=== PATIENT | male | born 1940 | race Hispanic/Latino ===

== ENCOUNTER 2017-08-25 23:34 | Emergency (ER) | payer MEDICARE, MEDICAID ==
--- NOTE | 2017-08-26 00:01 | RAD ---
CHEST ONE VIEW 08/25/17 HISTORY: Chest pain. COMPARISON: Chest one view from 2014. FINDINGS: There is a right infrahilar opacity. Mild blunting of the left lateral costophrenic sulcus. No pneumo thorax. IMPRESSION: Right infrahilar opacity versus mass. Clinical correlation advised. Close followup imaging is recomme ndeberyl. POS: STEPHIE
[2017-08-26 00:03] LABS: #Basophils 0.1 thou/uL (0.0-0.2); #Lymphocytes 1.8 thou/uL (1.20-3.40); #Monocytes 0.5 thou/uL (0.11-0.59); #Neutrophils 5.6 thou/uL (1.40-6.50); %Eosinophils 0.6 % (0.0-10.0); %Lymphocytes 22.9 % (21.0-51.0); %Monocytes 6.3 % (0.0-10.0); Hematocrit 39.4 % (42.0-52.0); Mean Platelet Volume 7.9 fL (7.4-10.4); Red Blood Cell (RBC) Count 3.94 mill/uL (4.70-6.10)
[2017-08-26 00:09] LABS: PTT 29.6 SEC (22.9-36.1); Prothrombin Time 12.5 SEC (12.0-14.7)
[2017-08-26 00:23] LABS: ALT (SGPT) 13 U/L (8-55); AST (SGOT) 19 U/L (5-34); Alkaline Phosphatase 65 U/L (40-150); Anion Gap 13 mmol/L (10-20); BUN (Urea Nitrogen) 15 mg/dL (8.4-25.7); Bilirubin, Total 0.6 mg/dL (0.2-1.2); CK (CPK) 103 U/L (30-200); Calc. Creatinine Clearance 0 mL/min (70-130); Calcium 8.8 mg/dL (7.8-10.44); Carbon Dioxide 24 mmol/L (23-31); Chloride 104 mmol/L (98-107); Estimated GFR-MDRD 60; Lipase 34 U/L (8-78); Protein, Total 7.2 g/dL (5.8-8.1)
[2017-08-26 00:27] LABS: Troponin I Less than 0.010 ng/mL (< 0.028)
[2017-08-26] MEDS ORDERED: Ondansetron HCl/PF 4 MG/2 ML Vial ONE (00:35)
[2017-08-26] MEDS ORDERED: Mag-Al 1200 mg/1200 mg/30 ML UDCUP ONE (00:35)
[2017-08-26] MEDS ORDERED: Lidocaine Viscous Sol 2% 15 ml UD Cup ONE ×2 (00:35→04:51)
[2017-08-26] MEDS ORDERED: Famotidine/PF 20 mg/2ml Vial ONE (00:43)
--- NOTE | 2017-08-26 09:36 | CT ---
PRELIMINARY REPORT/[facility]/EMERGENCY AFTER HOURS PROCEDURE: EXAM: CT Chest With Intravenous Contrast CT Abdomen and Pelvis With Intravenous Contrast CLINICAL HISTORY: 77 years old, male; Pain; Abdominal pain; Generalized; Chest pain; Type not specified TECHNIQUE: Axial computed tomography images of the chest, abdomen and pelvis with intravenous contrast. Coronal reformatted images were created and reviewed. CONTRAST: 90 mL of ISOVUE administered intravenously. COMPARISON: No relevant prior studies available. FINDINGS: CHEST: Lungs: Mild bronchial wall thickening and lower lobe mucous plugging with bilateral lower lobe subseg mental atelectasis and ground glass attenuation. Small clusters of centrilobular nodules in the middl e lobe, lingula, and left upper lobe. No mass or consolidation. Pleural space: No pneumothorax. No significant effusion. Heart: Aortic valve calcifications. Coronary calcifications. CABG. Mediastinum: Small hiatal hernia and fluid-filled esophagus. ABDOMEN: Liver: Probable 1.2 cm cyst in the hepatic dome. Relative hypoattenuation may be related to steatosis or phase of enhancement. Gallbladder and bile ducts: Unremarkable. Pancreas: Normal. Spleen: Normal. Adrenals: Normal. Kidneys and ureters: Few small low attenuation lesions in the kidneys, largest measuring 1.3 cm and f luid density on the left. Otherwise unremarkable. Stomach and bowel: Sigmoid diverticulosis. No focal inflammatory changes or evidence of obstruction. Appendix: No findings to suggest acute appendicitis. PELVIS: Bladder: Unremarkable. Reproductive: Unremarkable. CHEST, ABDOMEN and PELVIS: Intraperitoneal space: No free air. No significant fluid collection. Bones/joints: Unremarkable. No acute fracture. Soft tissues: Unremarkable. Vasculature: Dilated infrarenal aorta measuring up to 3.7 cm. Lymph nodes: Unremarkable. No enlarged lymph nodes. IMPRESSION: 1. Findings suggestive of bronchitis. 2. Infrarenal aortic aneurysm. Thank you for allowing us to participate in the care of your patient. Dictated and Authenticated by: Hola Aguilera MD 08/26/2017 2:50 AM Central Time ([place] & [place]) FINAL REPORT CT CHEST AND ABDOMEN AND PELVIS WITH IV CONTRAST: Date: 08/26/17 FINDINGS: Lung russell show ground-glass attenuation and bibasilar atelectatic change in the posterior lung base s which may represent an inflammatory process. This was described on the preliminary report. There is a moderate sized fixed diaphragmatic hernia with a dilated fluid-filled esophagus. This shou ld be further evaluated with GI consultation. Aneurysmal dilatation of the lower abdominal aorta with diameter measured up to 3.7 cm. I am in agreement with the preliminary report issued by [facility]. POS: STEPHIE
== END 2017-08-26 05:43 | disposition home or self-care (01) ==
LOC: ERS 23:34
DX: J40 Bronchitis, not specified as acute or chronic (principal); R10.13 Epigastric pain; E11.39 Type 2 diabetes mellitus with other diabetic ophthalmic complication; H40.9 Unspecified glaucoma; I10 Essential (primary) hypertension; I25.2 Old myocardial infarction; E78.5 Hyperlipidemia, unspecified; Z79.899 Other long term (current) drug therapy; Z79.891 Long term (current) use of opiate analgesic; Z79.82 Long term (current) use of aspirin; Z79.84 Long term (current) use of oral hypoglycemic drugs
CPT/HCPCS: 71010; 71260; 74177; 80053; 82553; 83690; 84484; 85025; 85610; 85730; 93005; 96374; 96375; J2405; S0028

== ENCOUNTER 2019-06-22 17:25 | Outpatient (CLI) | payer MEDICARE, MEDICAID ==
[2019-06-22 18:06] LABS: #Basophils 0.1 thou/uL (0.0-0.2); #Eosinphils 0.1 thou/uL (0.0-0.7); #Lymphocytes 2.4 thou/uL (1.20-3.40); #Monocytes 0.7 thou/uL (0.11-0.59); #Neutrophils 4.4 thou/uL (1.40-6.50); %Eosinophils 1.3 % (0.0-10.0); %Lymphocytes 31.8 % (21.0-51.0); %Monocytes 8.8 % (0.0-10.0); %Neutrophils 57.1 % (42.0-75.0); Hemoglobin 13.5 g/dL (14.0-18.0); Mean Corpuscular HGB CONC 35.1 g/dL (32.0-36.0); Mean Corpuscular Hemoglobin 33.3 pg (27.0-31.0); Mean Corpuscular Volume 95.1 fL (78.0-98.0); Platelet Count 157 thou/uL (130-400); Red Blood Cell (RBC) Count 4.05 mill/uL (4.70-6.10); White Blood Cell (WBC) Count 7.7 thou/uL (4.8-10.8)
[2019-06-22 18:26] LABS: ALT (SGPT) 11 U/L (8-55); AST (SGOT) 15 U/L (5-34); Albumin 4.3 g/dL (3.4-4.8); Alkaline Phosphatase 74 U/L (40-110); Anion Gap 11 mmol/L (10-20); BUN (Urea Nitrogen) 10 mg/dL (8.4-25.7); Bilirubin, Total 0.4 mg/dL (0.2-1.2); Calc. Creatinine Clearance 0 mL/min (70-130); Calcium 9.4 mg/dL (7.8-10.44); Carbon Dioxide 25 mmol/L (23-31); Chloride 105 mmol/L (98-107); Estimated GFR-MDRD 70; Glucose 123 mg/dL (83-110); Potassium 3.9 mmol/L (3.5-5.1); Protein, Total 7.3 g/dL (5.8-8.1); Sodium 137 mmol/L (136-145)
== END 2019-06-22 17:26 | disposition home or self-care (01) ==
LOC: LABBT 17:25
PROVIDERS: ATTEND Specialist
DX: Z01.818 Encounter for other preprocedural examination (principal); K82.8 Other specified diseases of gallbladder
CPT/HCPCS: 80053; 85025; 93005; 93010

== ENCOUNTER 2019-06-23 05:48 | Day surgery (SDC) | payer MEDICARE, MEDICAID ==
[2019-06-22 12:26] VITALS: BMI 24.4
[2019-06-23] MEDS ORDERED: Ketorolac Tromethamine 30 MG/ML VIAL ONE (06:36)
[2019-06-23] MEDS ORDERED: Bupivacaine/Epinephrine 0.25% 30 ML VIAL ONE (06:54)
[2019-06-23] MEDS ORDERED: Famotidine/PF 20 mg/2ml Vial ONE (07:03)
[2019-06-23] MEDS ORDERED: Fentanyl 100 MCG/2 ML VIAL ONE ×2 (07:03→09:32)
[2019-06-23] MEDS ORDERED: HYDROcodone/Acetaminophen 5/325 mg Tablet ONE (11:28)
[2019-06-23] MEDS ORDERED: PROPOFOL 200 MG/20 ML VIAL ONE (13:50)
[2019-06-23] MEDS ORDERED: Metoclopramide HCl 10 MG/2 ML VIAL ONE (13:50)
[2019-06-23] MEDS ORDERED: Rocuronium Bromide 10 MG/ML (10ML VIAL) ONE (13:50)
[2019-06-23] MEDS ORDERED: Glycopyrrolate 0.2 MG/ML 5 ML SYRINGE ONE (13:50)
[2019-06-23] MEDS ORDERED: Ondansetron PF 4 MG/2 ML Vial ONE (13:50)
[2019-06-23] MEDS ORDERED: Lidocaine 1% PF 5 ML VIAL ONE (13:50)
--- NOTE | 2019-06-24 10:13 | OP ---
DATE OF PROCEDURE: 06/23/2019 PREOPERATIVE DIAGNOSES: Gallbladder sludge and recent history of acute biliary pancreatitis. POSTOPERATIVE DIAGNOSES: Gallbladder sludge and recent history of acute biliary pancreatitis. PROCEDURE PERFORMED: Laparoscopic cholecystectomy. ANESTHESIA: General endotracheal. INDICATIONS: The patient is a 79-year-old male, who was recently hospitalized with pancreatitis at another hospital. Imaging studies revealed gallbladder sludge, and this would be the most likely etiology of his pancreatitis. For this reason, laparoscopic cholecystectomy was recommended. DESCRIPTION OF OPERATION: Informed consent was obtained. The patient was taken to the operating room where general endotracheal anesthesia was obtained with the patient in the supine position. The abdomen was prepped with Betadine and draped in the usual sterile fashion. 0.25% Marcaine with epinephrine was infiltrated below the umbilicus and a 10 mm infraumbilical incision was created. A Veress needle was passed through this incision into the peritoneal cavity. A pneumoperitoneum was established using carbon dioxide up to a pressure of 15 mmHg. Local anesthetic was infiltrated and 3 additional 5 mm right upper quadrant incisions were created. Through the mid incision, a 5 mm port was passed into the peritoneal cavity. The camera was passed through this port and under direct vision, an 11 port was passed through the infraumbilical incision. The camera was replaced through this port, and under direct vision, 2 additional 5 mm ports were passed through the incisions already created. The gallbladder was grasped and retracted in a cephalad direction. Minimal adhesions were bluntly stripped away from the apex of the gallbladder, and the apex was retracted laterally and inferiorly. Careful dissection was carried out to the apex of the gallbladder to identify the cystic duct and cystic artery. These were each carefully dissected circumferentially. The duct was of normal caliber. Both the duct and the artery were divided between clips, leaving 2 on the side to remain within the abdomen. The gallbladder was then dissected out of the gallbladder fossa using electrocautery and removed through the infraumbilical port site. The fascia was closed with 0 Vicryl suture and a GraNee needle. The right upper quadrant was inspected and irrigated. All irrigant was aspirated. All ports and instruments were removed under direct vision. Pneumoperitoneum was carefully evacuated. Additional local anesthetic was infiltrated into each port site. The skin edges were approximated with 4-0 Monocryl subcuticular sutures, and Dermabond was placed externally. There were no complications. The patient tolerated the procedure well and was taken to the recovery room in stable condition. FINDINGS: The patient's anatomy was typical. The duct was small and noninflamed, and a cholangiogram was not obtained. Liver function tests were entirely normal preoperatively. There was significantly thick and sclerotic tissue on the posterior wall of the gallbladder noted during the resection. Surgery was uneventful. There was negligible blood loss. Job ID: [id number]
== END 2019-06-23 12:30 | disposition home or self-care (01) ==
LOC: SDC 05:48
PROVIDERS: ATTEND Specialist
PROC: 0FT44ZZ Resection of Gallbladder, Percutaneous Endoscopic Approach (ICD-10-PCS; principal; 2019-06-23)
DX: K81.1 Chronic cholecystitis (principal); K82.8 Other specified diseases of gallbladder; Z87.19 Personal history of other diseases of the digestive system; Z79.84 Long term (current) use of oral hypoglycemic drugs; Z79.899 Other long term (current) drug therapy; Z95.1 Presence of aortocoronary bypass graft; Z98.890 Other specified postprocedural states
CPT/HCPCS: 88304; J0131; J0690; J1885; J2001; J2405; J2704; J2765; J3010; S0028

== ENCOUNTER 2019-09-12 13:57 | Emergency (ER) | payer MEDICARE, MEDICAID ==
--- NOTE | 2019-09-12 15:19 | RAD ---
XR Shoulder Rt 3 View STANDARD HISTORY: Injury, right shoulder pain FINDINGS: No fracture or dislocation is identified. There are degenerative changes in the AC joint.
--- NOTE | 2019-09-12 15:50 | CT ---
CT cervical spine noncontrast HISTORY: Fall. Neck injury. FINDINGS: Vertebral body heights and alignment are maintained. Disc space narrowing and osteophytosis at multiple levels. Posterior osteophyte/disc complexes most pronounced at the C3-4 and C4-5 levels. No acute fracture or dislocation evident. Multilevel central canal and significant foraminal stenoses . Small pocket of gas is evident within the inferior margin of the left C6-7 neural foramen. IMPRESSION: No acute osseous abnormalities are demonstrated. Prominent degenerative changes. While the degenerative changes could result in neurologic symptoms at multiple levels, the small pocket of gas in the left C6/7 neural foramen could represent a disc herniation. Clinical correlation regarding the left C7 dermatome is required.
--- NOTE | 2019-09-12 15:53 | CT ---
CT THORACIC SPINE WITHOUT CONTRAST: HISTORY: Fell 1 week ago. Pain. FINDINGS: Thoracic spine vertebral body height is maintained. There is no fracture. No malalignment. Multile wolfgang mild degenerative change of the thoracic spine. Visualized mediastinum and solid organs are unremarkable. Visualized lung parenchyma is also unremarkable. Dependent atelectatic changes. Trachea and central bronchi are patent. No evidence of high-grade central canal stenosis or high-grade neural foraminal narrowing. IMPRESSION: No thoracic spine fracture. POS: CET
--- NOTE | 2019-09-12 15:56 | CT ---
NONCONTRAST HEAD CT: Comparison: 04-03-14 History: Fall one week ago. Pain. FINDINGS: No parenchymal hemorrhage. No extraaxial hematoma. No midline shift. Basilar cisterns are patent. Brain volume is age appropriate. Cortical guy white matter differentiation is preserved. No hydrocephalus. Intact calvarium. Adequate aeration of the sinuses and mastoid air cells. Chronic small vessel ischemic change of the white matter noted. IMPRESSION: No intracranial post-traumatic sequellae. POS: CET
--- NOTE | 2019-09-12 16:01 | CT ---
CT lumbar spine noncontrast HISTORY: Fall. Back injury. FINDINGS: Vertebral body heights and alignment are maintained. No acute fracture or dislocation are a pparent. Minimal degenerative spondylolisthesis at the L4-5 level, with posterior disc bulge and circumferential degenerative changes result central canal stenosis that is most pronounced. Foraminal stenosis most severe on the left at the L4-5 level. Chronic appearing fragmentation of the far inferior margin of the left L4 facet. Diverticula are seen to arise from the partially visualized:. Multiple lobular calcifications overlie each side of the abdomen on the model and pattern supervisor topograms. Favored to be outside of the renal collecting systems based on all the images. Fusiform ectasia of the lower abdominal aorta is evident on the axial images, although it is incomple tely visualized. There is calcification in the aorta. IMPRESSION: Degenerative changes of lumbar spine including significant central canal and foraminal st enoses at the L4-5 level. No evidence of compression fracture or other acute osseous abnormalities. Fusiform dilatation of the lower abdominal aorta with atherosclerosis. Incompletely imaged. Please co nsider follow-up imaging with sonogram of the abdominal aorta or dedicated CT for complete characterization.
--- NOTE | 2019-09-12 16:04 | RAD ---
XR Chest 1 View Portable HISTORY: Fall, back pain COMPARISON: 08/25/2017 FINDINGS: The heart size is normal. Changes of median sternotomy and old granulomatous disease are ag ain seen. The lungs are well expanded without focal areas of consolidation, pneumothorax or pleural effusions. IMPRESSION: No radiographic evidence of acute cardiopulmonary process.
[2019-09-12 16:06] LABS: #Basophils 0.1 thou/uL (0.0-0.2); #Eosinphils 0.1 thou/uL (0.0-0.7); #Lymphocytes 2.4 thou/uL (1.20-3.40); #Monocytes 0.6 thou/uL (0.11-0.59); #Neutrophils 3.4 thou/uL (1.40-6.50); %Basophils 1.3 % (0.0-1.0); %Eosinophils 1.3 % (0.0-10.0); %Lymphocytes 36.1 % (21.0-51.0); %Monocytes 9.5 % (0.0-10.0); %Neutrophils 51.8 % (42.0-75.0); Mean Corpuscular HGB CONC 34.1 g/dL (32.0-36.0); Mean Corpuscular Hemoglobin 32.9 pg (27.0-31.0); Mean Corpuscular Volume 96.3 fL (78.0-98.0); Mean Platelet Volume 7.3 fL (7.4-10.4); Platelet Count 181 thou/uL (130-400); RBC Distribution Width 13.2 % (11.5-14.5); Red Blood Cell (RBC) Count 3.94 mill/uL (4.70-6.10); White Blood Cell (WBC) Count 6.5 thou/uL (4.8-10.8)
[2019-09-12 16:31] LABS: ALT (SGPT) 15 U/L (8-55); AST (SGOT) 17 U/L (5-34); Albumin 4.1 g/dL (3.4-4.8); Alkaline Phosphatase 71 U/L (40-110); Anion Gap 11 mmol/L (10-20); BUN (Urea Nitrogen) 15 mg/dL (8.4-25.7); Bilirubin, Total 0.4 mg/dL (0.2-1.2); Calc. Creatinine Clearance 0 mL/min (70-130); Carbon Dioxide 25 mmol/L (23-31); Chloride 108 mmol/L (98-107); Estimated GFR-MDRD 75; Globulin 2.4 g/dL (2.4-3.5); Glucose 158 mg/dL (83-110); Potassium 4.7 mmol/L (3.5-5.1); Protein, Total 6.5 g/dL (5.8-8.1); Sodium 139 mmol/L (136-145)
[2019-09-12] MEDS ORDERED: Ibuprofen 200 MG TAB ONE (16:42)
[2019-09-12] MEDS ORDERED: Meclizine HCl 25 MG TAB ONE (16:42)
== END 2019-09-12 17:36 | disposition home or self-care (01) ==
LOC: ERS 13:57
DX: R51 Headache (principal); R07.9 Chest pain, unspecified; R42 Dizziness and giddiness; I10 Essential (primary) hypertension; M25.511 Pain in right shoulder; E78.00 Pure hypercholesterolemia, unspecified; E78.5 Hyperlipidemia, unspecified; Z79.84 Long term (current) use of oral hypoglycemic drugs; Z79.899 Other long term (current) drug therapy; W18.30XA Fall on same level, unspecified, initial encounter; Z79.82 Long term (current) use of aspirin
CPT/HCPCS: 36415; 70450; 71045; 72125; 72128; 72131; 80053; 84484; 85025; 93005; J8597

== ENCOUNTER 2020-07-19 05:53 | Emergency (ER) | payer MEDICARE, MEDICAID ==
[2020-07-19 07:07] LABS: #Basophils 0.1 thou/uL (0.0-0.2); #Eosinphils 0.1 thou/uL (0.0-0.7); #Lymphocytes 2.1 thou/uL (1.20-3.40); #Monocytes 0.6 thou/uL (0.11-0.59); #Neutrophils 3.7 thou/uL (1.40-6.50); %Eosinophils 1.5 % (0.0-10.0); %Lymphocytes 32.4 % (21.0-51.0); %Monocytes 8.9 % (0.0-10.0); %Neutrophils 56.2 % (42.0-75.0); Hemoglobin 12.2 g/dL (14.0-18.0); Mean Corpuscular HGB CONC 33.7 g/dL (32.0-36.0); Mean Corpuscular Hemoglobin 33.1 pg (27.0-31.0); Mean Corpuscular Volume 98.2 fL (78.0-98.0); Mean Platelet Volume 7.9 fL (7.4-10.4); Platelet Count 162 thou/uL (130-400); RBC Distribution Width 13.1 % (11.5-14.5); White Blood Cell (WBC) Count 6.5 thou/uL (4.8-10.8)
[2020-07-19 07:27] LABS: ALT (SGPT) 25 U/L (8-55); AST (SGOT) 23 U/L (5-34); Albumin 3.8 g/dL (3.4-4.8); Alkaline Phosphatase 65 U/L (40-110); Anion Gap 12 mmol/L (10-20); BUN (Urea Nitrogen) 16 mg/dL (8.4-25.7); Bilirubin, Total 0.4 mg/dL (0.2-1.2); Calc. Creatinine Clearance 0 mL/min (70-130); Calcium 8.6 mg/dL (7.8-10.44); Carbon Dioxide 25 mmol/L (23-31); Chloride 106 mmol/L (98-107); Estimated GFR-MDRD 67; Globulin 2.7 g/dL (2.4-3.5); Glucose 179 mg/dL (83-110); Potassium 4.1 mmol/L (3.5-5.1); Protein, Total 6.5 g/dL (5.8-8.1); Sodium 139 mmol/L (136-145)
--- NOTE | 2020-07-19 07:58 | RAD ---
Chest one view HISTORY: Hemoptysis. COMPARISON: 09/12/2019. FINDINGS: Cardiac silhouette is magnified by projection. Pulmonary vasculature is unremarkable. Mediastinum is midline with aortic calcification. Calcified granulomata are consistent with healed granulomatous disease. No lobar consolidation or juan dence of pneumothorax. IMPRESSION : Atherosclerosis. Chronic-type findings are stable. No active cardiopulmonary abnormalities are demonstrated.
--- NOTE | 2020-07-19 10:27 | CT ---
CT arteriogram chest with IV contrast and 3-D imaging HISTORY: Hemoptysis. COMPARISON: 08/26/2017. FINDINGS: There is good contrast opacification of the pulmonary arteries. Contrast had not reached th e aorta at the time of imaging. No pleural fluid or pneumothorax. Calcified granulomata are consistent with healed granulomatous dise ase. Scattered areas of mild parenchymal scarring. Mild atelectasis at the right posterior lung base. Postoperative changes of the mediastinum are evident. Small hiatal hernia is similar in appearance to the prior study. IMPRESSION : No CT evidence of pulmonary embolus. Hiatal hernia and other chronic-type findings are stable
[2020-07-19] MEDS ORDERED: Iopamidol-370 76% 500 ML 1 ML ONE (15:03)
== END 2020-07-19 10:38 | disposition home or self-care (01) ==
LOC: ERS 05:53
DX: R05 Cough (principal); R04.2 Hemoptysis; I25.2 Old myocardial infarction; E78.5 Hyperlipidemia, unspecified; E11.9 Type 2 diabetes mellitus without complications; I10 Essential (primary) hypertension; Z79.82 Long term (current) use of aspirin; Z79.899 Other long term (current) drug therapy; Z79.84 Long term (current) use of oral hypoglycemic drugs
CPT/HCPCS: 36415; 71045; 71275; 80053; 85025; 85379; Q9967